=== PATIENT | male | born 1955 | race African-American/Black ===

== ENCOUNTER 2017-01-31 19:59 | Inpatient (IN) | END 2017-02-01 18:35 | disposition home or self-care (01) | DRG 202 | DX: J40 Bronchitis, not specified as acute or chronic (principal); J18.9 Pneumonia, unspecified organism; Z99.11 Dependence on respirator [ventilator] status; J96.10 Chronic respiratory failure, unspecified whether with hypoxia or hypercapnia; R13.10 Dysphagia, unspecified; J98.11 Atelectasis; Z85.21 Personal history of malignant neoplasm of larynx; G40.909 Epilepsy, unspecified, not intractable, without status epilepticus; D50.9 Iron deficiency anemia, unspecified; Z93.1 Gastrostomy status ==